=== PATIENT | male | born 1990 | race Caucasian/White ===

== ENCOUNTER → 2024-11-22 09:11 | Outpatient (CLI) | payer OTHER, SELFPAY ==
--- NOTE | 2024-11-22 09:16 | DI.ECHO.S_ITS ---
[facility] : : [address] : : [place] : : [id number] : : Phone: [phone] Echocardiogram Report + + :Name: SIMONA KHAN Study Date: 11/22/2024 Height: 69 in : :Hospital ReadingLocation: Weight: 140 lb : : Gender: Male BSA: 1.8 m2 : :: 1990 Age: 33 yrs BP: 106/70 mmHg: :Reason For Study: SYNCOPE AND COLLAPSE : :Ordering Physician: ZULEIKA, : :SANDRA Performed By: Sere Mcclelland : :Referring: SANDRA TO : + + Interpretation Summary Patient was bradycardic throughout the echocardiogram. Borderline normal LV systolic function. LVEF is estimated at 50 to 55%. Bradycardia likely makes the LV function appear less vigorous. Normal RV size and function. Normal atrial sizes. No valvular pathology is noted. No pulmonary hypertension. Other findings as below. No previous echo available for comparison. Procedure: A two-dimensional transthoracic echocardiogram with color flow and Doppler was performed. The study quality was technically good. There is no prior echocardiogram noted for this patient. The patient was in sinus bradycardia with heart rates between 40-60 bpm during the exam. Left Ventricle: The left ventricle is normal in size. There is normal left ventricular wall thickness. There is no ventricular septal defect visualized. The ejection fraction is estimated to be 50-55%. Left ventricular systolic function is low normal. There are no focal wall motion abnormalities. Diastolic parameters suggest probable normal left ventricular diastolic function and normal filling pressures. Right Ventricle: The right ventricle is normal in size and function. Atria: The left atrial size is normal. Right atrial size is normal. There is no Doppler evidence for an interatrial shunt. Mitral Valve: The mitral valve is normal in structure and function. There is no mitral regurgitation noted. Aortic Valve: The aortic valve is trileaflet. The aortic valve opens well. No aortic regurgitation is present. Tricuspid Valve: The tricuspid valve is normal. There is trace tricuspid regurgitation. The right ventricular systolic pressure is estimated to be at least 23 mmHg based on an estimated right atrial pressure of 3 mm Hg. Pulmonic Valve: The pulmonic valve is not well visualized. There is no pulmonic valvular regurgitation. Great Vessels: The aortic root is normal size. The dimensions of the ascending aorta are normal. The pulmonary artery is normal size. The IVC is of normal diameter and collapses greater than 50% with a sniff. This suggests a low right atrial pressure of 3 mm Hg. Pericardium/ Pleura There is no pericardial effusion. There is no pleural effusion. MMode/2D Measurements & Calculations LVIDd: 4.7 cm LVOT diam: 2.0 cm LVIDs: 3.1 cm Ao root diam: 2.8 cm FS: 34.4 % asc Aorta Diam: 2.5 cm EPSS: 0.33 cm Ao Arch Diam (Prox Trans): 1.5 cm IVSd: 0.77 cm LVPWd: 0.77 cm LV alvarado. diameter/BSA (cm/m^2): 2.6 LV sys. diameter/BSA (cm/m^2): 1.7 LA A2 area: 11.6 cm2 RA long axis: 4.8 cm LA A4 area: 15.6 cm2 RA area: 17.2 cm2 LA length (vol): 4.7 cm RA vol: 52.6 ml LA vol: 32.6 ml RA : 29.6 ml/m2 LA vol index: 18.3 ml/m2 IVC diam: 1.9 cm RVD1 (basal): 3.3 cm RVD2 (mid): 3.0 cm TAPSE: 2.6 cm Doppler Measurements & Calculations Ao V2 max: 114.1 cm/sec LVOT Max Liam: 102.3 cm/sec Ao V2 mean: 80.1 cm/sec LV V1 max P.2 mmHg Ao max P.2 mmHg LV V1 VTI: 22.6 cm Ao mean P.9 mmHg FRANTZ(I,D): 3.2 cm2 Ao V2 VTI: 23.3 cm FRANTZ(V,D): 3.0 cm2 sev ratio: 0.97 FRANTZ indexed to BSA (cm^2/m^2): 1.8 MV E max liam: 76.2 cm/sec TR max liam: 223.3 cm/sec MV A max liam: 37.3 cm/sec TR max P.9 mmHg MV E/A: 2.0 PA V2 max: 75.2 cm/sec Med Peak E' Liam: 14.2 cm/sec PA V2 mean: 55.3 cm/sec E/E' med: 5.4 PA mean P.3 mmHg Lat Peak E' Liam: 19.2 cm/sec PA pr(Accel): 10.9 mmHg E/E' lat: 4.0 E/e' average: 4.7 MV dec time: 0.17 sec SV(LVOT): 74.3 ml Reading Physician:02:50 PM
== END ==
LOC: ECHO 09:15
PROVIDERS: Referring Provider Chiropractor; Visit Provider Chiropractor
DX: R55 Syncope and collapse (principal); R00.0 Tachycardia, unspecified
CPT/HCPCS: 93306